=== PATIENT | female | born 1990 | race Caucasian/White ===

== ENCOUNTER 2016-10-24 00:39 | Emergency (ER) | payer OTHER ==
[~2016-10-24] VITALS: Ht 160 cm; Wt 60.5 kg
[2016-10-24 00:53] VITALS: BP 115/69; PULSE 94; RESP 16; O2SAT 98
[2016-10-24] MEDS ORDERED: 0.9% Sodium Chloride 1,000 ML IV ONE (01:03)
--- NOTE | 2016-10-24 01:04 | ED.REPORT ---
HPI-NVD Date of Service Oct 24, 2016 ED Provider: Tammie Cisneros MD Patient is a 26 year old female who presents to the ED with vomiting and diarrhea that began at 5pm last night. The patient reports that she awoke from sleep 4 days ago due to nausea. She took Zofran, which improved her symptoms for several days. Patient developed nausea and vomiting at 5pm yesterday evening , as well a diarrhea. Patient last took a dose of Zofran 2 hours prior to arrival. Patient reports numbness of her upper lip and fingertips which began on arrival to the ED. The patient reports associated chills, weakness, and dizziness. She denies a fever, hematochezia, or hematemesis. The patient admits that IUD placement was attempted yesterday, but her cervix would not dilate enough during the procedure. She reports abdominal pain since that time. Patient reports some mild associated back pain. The patient is otherwise healthy. Nursing Notes Stated Complaint: NAUSEA, VOMITING Chief Complaint: Female Abdominal Pain Nursing Notes Reviewed: Yes Allergies: Coded Allergies: amoxicillin (Verified Allergy, Intermediate, RASH, 10/24/16) Scheduled PRN Ondansetron ODT (Ondansetron ODT) 4 Mg Tab.rapdis 4 MG PO Q6H PRN PRN For Nausea General Time Seen by MD: 01:03 Chief Complaint Nausea, Vomiting, Diarrhea Hx Obtained From: Patient Arrived By: Walk-in Onset Occurred: 5 - 8 hours ago Symptom Duration: Since onset Location: : Diffuse Quality: Painful Severity: Current: Mild Severity: Maximum: Mild Recent Healthcare: No recent hospitalization, Recent doctor visit Similar Sx Previous: No Past Medical History Past Medical History none Past Surgical History none Smoking History Unknown if Ever Smoker Social History Other Social History: Good social support, , Lives with children, Local resident Ambulatory Status Independent Review of Systems Constitutional: Reports: Chills, Denies: Fever GI: Reports: Abdominal pain, Diarrhea, Nausea, Vomiting, Denies: Hematemesis, Hematochezia Neurologic: Reports: Dizziness, Lightheaded, Numbness Complete sys rev & neg: except as marked. Physical Exam Initial Vital Signs Vital Signs (First) Date Time Temp Pulse Resp B/P Pulse Ox O2 Delivery O2 Flow Rate FiO2 10/24/16 00:53 36.2 94 16 115/69 98 Room Air Initial VS: Reviewed Head / Eyes: Atraumatic, Normocephalic, PERRL ENT: Mucous membranes moist, Conjunctiva normal, No scleral icterus Neck: Supple, Full range of motion Respiratory: Breath sounds normal, Clear to auscultation, No respiratory distress Cardiovascular: Regular rate & rhythm, Heart sounds normal Extremities: Vascular intact, Neuro intact, No swelling Skin: Warm, Dry, No cyanosis Neurologic: Alert, Oriented, Nonfocal Psychiatric: Mood/affect normal, Behavior normal, Normal thought content General/Constitutional: Awake, Alert, No acute distress, Well appearing Abdomen: Soft, Non-tender, No guarding, No rebound, No distention Interpretation & Diagnostics Lab Results Interpretation Result Diagram: 10/24/16 0120 10/24/16 0120 Test 10/24/16 01:20 10/24/16 01:30 White Blood Count 8.0th/mm3 (3.8-10.1) Red Blood Count 5.01mil/mm3 (3.90-5.20) Hemoglobin 15.4g/dL (12.0-15.6) Hematocrit 43.4% (35.0-46.0) Mean Corpuscular Volume 86.6fL (81-100) Mean Corpuscular Hemoglobin 30.7pg (27.0-35.0) Mean Corpuscular Hemoglobin Concent 35.5% (32.0-37.0) Red Cell Distribution Width 12.5% (12.3-15.4) Platelet Count 211bil/L (150-400) Neutrophils (%) (Auto) 78.1% (40-74) Lymphocytes (%) (Auto) 10.6% (14-46) Monocytes (%) (Auto) 10.2% (4-12) Eosinophils (%) (Auto) 0.6% (0-5) Basophils (%) (Auto) 0.4% (0-3) Sodium Level 139mEq/L (134-144) Potassium Level 3.8mEq/L (3.5-5.2) Chloride Level 101mEq/L (97-108) Carbon Dioxide Level 22mmol/L (18-29) Blood Urea Nitrogen 15mg/dL (6-20) Creatinine 0.80mg/dL (0.57-1.00) Estimat Glomerular Filtration Rate 124mL/min (>59) Glucose Level 117mg/dL (60-99) Calcium Level 9.1mg/dL (8.5-10.1) Magnesium Level 2.1mg/dL (1.6-2.6) Total Bilirubin 0.8mg/dL (0.0-1.2) Aspartate Amino Transf (AST/SGOT) 39U/L (0-50) Alanine Aminotransferase (ALT/SGPT) 23U/L (0-32) Alkaline Phosphatase 55U/L (25-150) Total Protein 7.0g/dL (6.4-8.4) Albumin 4.5g/dL (3.4-5.0) Lipase 23U/L (13-60) Hold Palomo Top Tube Received (Received) Urine Color Yellow (YELLOW) Urine Appearance Clear (CLEAR,HAZY) Urine pH 6.0 (5.0-8.0) Urine Specific [place] 1.020 (1.003-1.035) Urine Protein Negativemg/dL (NEG,TRACE) Urine Glucose (UA) Negativemg/dL (NEGATIVE) Urine Ketones >80mg/dL (NEGATIVE) Urine Occult Blood Trace (NEGATIVE) Urine Nitrite Negative (NEGATIVE) Urine Bilirubin Negative (NEGATIVE) Urine Urobilinogen 1.0mg/dL (NORMAL) Urine Leukocyte Esterase Negative (NEGATIVE) Urine RBC 0-2/hpf (0-2) Urine WBC 0-5/hpf (0-5) Urine Epithelial Cells Few/hpf (NONE-MOD) Urine Crystals None seen (NONE SEEN) Urine Bacteria Few/hpf (NONE-FEW) Urine Hyaline Casts None/lpf (NONE) Urine Granular Casts None seen (NONE SEEN) Urine Waxy Casts None seen (NONE SEEN) Urine Red Blood Cell Casts None seen (NONE SEEN) Urine White Blood Cell Casts None seen (NONE SEEN) Urine Mucus None seen (None Seen) Urine Trichomonas None seen (NONE SEEN) Urine Yeast None (NONE SEEN) Urinalysis Comment None Urine Culture Reflexed Not indicated Re-Eval/Medical Decision Med Decision/Clinical Course 26-year-old female with no past medical history here with nausea, vomiting, diarrhea. Differential diagnosis includes but is not limited to viral versus bacterial gastroenteritis versus C. difficile versus food poisoning. CBC, CMP, urinalysis are all normal. Patient was given a liter of fluids in the emergency department, along with Zofran. She was able to tolerate by mouth. At this time, I do not feel she has C. difficile given she has no leukocytosis, and a benign abdominal exam. She is aware and amenable to discharge at this time with follow-up with her primary care physician and a prescription for Zofran. He has been given very strict return precautions Re-Evaluation/Progress : Time of Eval: 02:43 Patient Status: Condition improved Re-Evaluation/Progress Note: Rechecked the patient. Her labs did not show any acute process. She feels improved with Zofran and is able to keep down ice chips. Patient states that her diarrhea is now worsening. Patient understands and agrees with the plan to be discharged home. Discharge instructions and follow-up discussed. All questions were addressed. Return to the ED warnings given. Counseled Regarding: Diagnosis, Lab results, Need for follow-up, When/why to return to ED Discharge & Departure Impression: Primary Impression: Nausea, vomiting, and diarrhea Disposition: Home Discharge Condition All VS Reviewed: Yes Condition: Stable Patient Instructions: Acute Diarrhea (ED), Acute Nausea and Vomiting (ED) Additional Instructions: You laboratory evaluation tonight was reassuring. You likely have a viral gastroenteritis. Continue to take Zofran as needed for nausea. I would not recommend taking over the counter antidiarrheals unless absolutely necessary. Follow-up with your doctor early next week. Return to the Emergency Department if you experience persistent vomiting, worsening abdominal pain, fever, or any other concerning symptoms. Referrals: Brenda Cameron CNM (PCP) Manny Attestation Portions of this note were transcribed by Lisa Joy. I, Dr. Cisneros personally performed the history, physical exam and medical decision-making; I reviewed and confirmed the accuracy of the information in the transcribed note. Signed by: Manny Arevalo, 10/24/2016 0246 copies to: Brenda Cameron CNM, Rebecca A MD Oct 24, 2016 01:04 Lisa Joy Oct 24, 2016 01:12
[2016-10-24 01:41] LABS: BASOPHILS % (AUTO) 0.4 % (0-3); EOSINOPHILS % (AUTO) 0.6 % (0-5); MONOCYTES % (AUTO) 10.2 % (4-12); Mean Corpuscular Hemoglobin 30.7 pg (27.0-35.0); Mean Corpuscular Volume 86.6 fL (81-100); NEUTROPHILS % (AUTO) 78.1 % (40-74); Platelet Count 211 bil/L (150-400)
[2016-10-24 01:47] LABS: APPEARANCE,URINE CLEAR (CLEAR,HAZY); COLOR,URINE YELLOW (YELLOW); OCCULT BLOOD,URINE TRACE (NEGATIVE)
[2016-10-24] MEDS ORDERED: Ondansetron 2 mg/mL 2 mL Inj IVPUSH ONE (01:50)
[2016-10-24 02:14] LABS: Magnesium 2.1 mg/dL (1.6-2.6)
[2016-10-24] MEDS ORDERED: ONDA4TAB12 PO (02:47)
== END 2016-10-24 03:06 | disposition home or self-care (01) ==
LOC: SED 00:39
DX: R11.2 Nausea with vomiting, unspecified (principal); R19.7 Diarrhea, unspecified; R42 Dizziness and giddiness; R53.1 Weakness
CPT/HCPCS: 36415; 80053; 81000; 81025; 83690; 83735; 85025; 96361; 96374; 99284; J2405; J7030